=== PATIENT | male | born 1950 | race Caucasian/White ===

== ENCOUNTER 2017-08-25 06:49 | Day surgery (SDC) | payer MEDICARE, BC ==
[~2017-08-25 06:49] MED LIST: Cefuroxime 10 MG/ML SYRINGE EYELF SCH; Lidocaine 1% PF 2 ML SDV INJECT SCH; Pilocarpine 4% Ophth Soln 15 ML Bot EYELF SCH
[2017-08-25] MEDS: Polymyxin B/Trimethoprim 10 ML Bottle EYELF SCH ×3 (07:25→09:22)
[2017-08-25] MEDS: Brimonidine 0.2% Ophth Soln 5 ML Bottle EYELF SCH ×3 (07:30→09:22)
[2017-08-25] MEDS: Phenylephrine 2.5% Ophth Soln 2 ML Bot EYELF SCH ×5 (07:34→08:56)
--- NOTE | 2017-08-25 07:47 | PCM.PREANE ---
Preanesthetic Assessment - Procedure Proposed Procedure: Left Eye Cataract Extraction - Anesthesia/Transfusion/Family Hx Anesthesia History: Prior Anesthesia Without Reaction Family History of Anesthesia Reaction: Yes ("Daughter allegeric to Amide Anesthetic= Xylocaine ") Transfusion History: No Prior Transfusion(s) Intubation History: Unknown - Review of Systems General: Other (chronic cough with wood working ) Cardiovascular: Chest Pain (history of cardiac stents , no current chest pain ) Gastrointestinal: No Symptoms Neurological: No Symptoms Other: Reports: Diabetes (BS this AM 201 ) - Physical Assessment NPO Status Date: 08/24/17 NPO Status Time: 22:00 O2 Sat by Pulse Oximetry: 93 Respiratory Rate: 16 Vital Signs: Last Vital Signs Temp 36.7 C 08/25/17 07:05 Pulse 78 08/25/17 07:05 Resp 16 08/25/17 07:05 BP 138/74 08/25/17 07:05 Pulse Ox 93 L 08/25/17 07:05 Weight: 108.862 kg ASA Class: 2 Mental Status: Alert & Oriented x3 Airway Class: Mallampati = 3 Dentition: Reports: Normal Dentition Thyro-Mental Finger Breadths: 3 Mouth Opening Finger Breadths: 4 ROM/Head Extension: Full Lungs: Clear to Auscultation, Normal Respiratory Effort Cardiovascular: Regular Rate, Irregular Rhythm (known, told nothing to worry about, not on any medications for it ) - Lab Values: Laboratory Last Values POC Glucose 201 mg/dL (80-115) H 08/25/17 07:15 - Allergies Allergies/Adverse Reactions: Allergies Allergy/AdvReac Type Severity Reaction Status Date / Time No Known Allergies Allergy Verified 08/24/17 13:09 - Blood Blood Available: No - Anesthesia Plan Pre-Op Medication Ordered: None Beta Zohaib: Metoprolol Med Last Dose Date: 08/24/17 Med Last Dose Time: 18:00 - Acknowledgements Anesthesia Type Planned: MAC Pt an Appropriate Candidate for the Planned Anesthesia: Yes Alternatives and Risks of Anesthesia Discussed w Pt/Guardian: Yes Pt/Guardian Understands and Agrees with Anesthesia Plan: Yes PreAnesthesia Questionnaire Cardiovascular History: Reports: Arrhythmia, Hypertension - HOME MEDS Home Medications: Home Meds Finasteride [Finasteride] 5 mg PO DAILY 08/24/17 [History] LORazepam [LORazepam] 1 mg PO BEDTIME PRN 08/24/17 [History] Lisinopril [Lisinopril] 2.5 mg PO DAILY 08/24/17 [History] Metoprolol Succinate 25 mg PO DAILY 08/24/17 [History] SitaGLIPtin [Januvia] 50 mg PO DAILY 08/24/17 [History] Tamsulosin [Flomax] 0.8 mg PO DAILY 08/24/17 [History] metFORMIN [Glucophage] 1,000 mg PO BID 08/24/17 [History] - CURRENT (IN HOUSE) MEDS Current Meds: Current Medications Brimonidine Tartrate (Alphagan 0.2% Ophth Soln) 0 ml EYELF ASDIRECTED DINORAH Stop: 08/25/17 18:00 Last Admin: 08/25/17 07:30 Dose: 1 drop Cefuroxime Sodium (Zinacef) 0 mg EYELF ASDIRECTED DINORAH Stop: 08/25/17 18:00 Lidocaine HCl (Xylocaine-Mpf 1%) 10 ml INJECT ASDIRECTED DINORAH Stop: 08/25/17 18:00 Phenylephrine HCl (Cortez-Synephrine 2.5% Ophth Soln) 0 ml EYELF ASDIRECTED DINORAH Stop: 08/25/17 18:00 Last Admin: 08/25/17 07:34 Dose: 1 drop Pilocarpine HCl (Pilocar 4% Ophth Soln) 0 ml EYELF ASDIRECTED DINORAH Stop: 08/25/17 18:00 Polymyxin/Trimethoprim Sulfate (Polytrim Ophth Soln) 0 ml EYELF ASDIRECTED DINORAH Stop: 08/25/17 18:00 Last Admin: 08/25/17 07:25 Dose: 1 drop Tetracaine HCl (Tetracaine 0.5% Steri-Unit Anastasiya) 0 ml EYELF ASDIRECTED DINORAH Stop: 08/25/17 18:00 Tropicamide (Mydriacyl 1% Ophth Soln) 0 ml EYELF ASDIRECTED DINORAH Stop: 08/25/17 18:00 Last Admin: 08/25/17 07:38 Dose: 1 drop
[2017-08-25] MEDS: Tetracaine HCl/PF 0.5% 4 ML Bottle EYELF SCH ×2 (08:42→09:05)
--- NOTE | 2017-08-25 09:26 | PCM48HPAN ---
Post Anesthesia Note - EVALUATION WITHIN 48HRS OF ANESTHETIC Vital Signs in Normal Range: Yes Patient Participated in Evaluation: Yes Respiratory Function Stable: Yes Airway Patent: Yes Cardiovascular Function Stable: Yes Hydration Status Stable: Yes Pain Control Satisfactory: Yes Nausea and Vomiting Control Satisfactory: Yes Mental Status Recovered: Yes Pulse Rate: 78 SaO2: 93 Resp Rate: 16 Blood Pressure: 142/87
== END 2017-08-25 09:35 | disposition home or self-care (01) ==
LOC: JD.SDS 06:49
PROVIDERS: ATTEND Ophthalmology
DX: E11.36 Type 2 diabetes mellitus with diabetic cataract (principal); H25.813 Combined forms of age-related cataract, bilateral; H02.831 Dermatochalasis of right upper eyelid; H02.834 Dermatochalasis of left upper eyelid; I10 Essential (primary) hypertension; Z79.899 Other long term (current) drug therapy; Z79.84 Long term (current) use of oral hypoglycemic drugs; Z98.890 Other specified postprocedural states; Z87.891 Personal history of nicotine dependence
CPT/HCPCS: 66984; 82962; C1780; J0697; A9270-GY

== ENCOUNTER 2017-09-22 09:12 | Day surgery (SDC) | payer MEDICARE, BC ==
[~2017-09-22 09:12] MED LIST changes: -Cefuroxime 10 MG/ML SYRINGE EYELF SCH; +Cefuroxime 10 MG/ML SYRINGE EYERT SCH; -Pilocarpine 4% Ophth Soln 15 ML Bot EYELF SCH; +Pilocarpine 4% Ophth Soln 15 ML Bot EYERT SCH
[2017-09-22] MEDS: Polymyxin B/Trimethoprim 10 ML Bottle EYERT SCH ×3 (10:35→12:12)
--- NOTE | 2017-09-22 10:37 | PCM.PREANE ---
Preanesthetic Assessment - Anesthesia/Transfusion/Family Hx Anesthesia History: Prior Anesthesia Without Reaction Family History of Anesthesia Reaction: No Transfusion History: No Prior Transfusion(s) Intubation History: Unknown - Review of Systems General: No Symptoms Pulmonary: Other (denies) Cardiovascular: Other (stents four years ago, HTN) Gastrointestinal: Other (GERD) Other: Reports: Diabetes (diabetes, on oral agents, pt checks glucose in evening , last evening 160) - Physical Assessment NPO Status Date: 09/21/17 NPO Status Time: 23:00 Pulse: 64 O2 Sat by Pulse Oximetry: 94 Respiratory Rate: 16 Blood Pressure: 120/72 Temperature: 36 C Vital Signs: Last Vital Signs Temp 36.3 C 09/22/17 10:13 Pulse 64 09/22/17 10:13 Resp 16 09/22/17 10:13 BP 120/72 09/22/17 10:13 Pulse Ox 94 L 09/22/17 10:13 Height: 1.83 m Weight: 108.862 kg ASA Class: 3 Mental Status: Alert & Oriented x3 Airway Class: Mallampati = 3 Dentition: Reports: Normal Dentition Thyro-Mental Finger Breadths: 3 Mouth Opening Finger Breadths: 3 ROM/Head Extension: Full Lungs: Clear to Auscultation, Normal Respiratory Effort Cardiovascular: Regular Rate, Regular Rhythm - Allergies Allergies/Adverse Reactions: Allergies Allergy/AdvReac Type Severity Reaction Status Date / Time No Known Allergies Allergy Verified 09/20/17 16:32 - Blood Blood Available: No Product(s) Available: None - Anesthesia Plan Pre-Op Medication Ordered: None Beta Zohaib: Metoprolol Med Last Dose Date: 09/21/17 Med Last Dose Time: 20:00 - Acknowledgements Anesthesia Type Planned: MAC Pt an Appropriate Candidate for the Planned Anesthesia: Yes Alternatives and Risks of Anesthesia Discussed w Pt/Guardian: Yes Pt/Guardian Understands and Agrees with Anesthesia Plan: Yes PreAnesthesia Questionnaire Cardiovascular History: Reports: Arrhythmia, Hypertension - HOME MEDS Home Medications: Home Meds Finasteride [Finasteride] 5 mg PO DAILY 08/24/17 [History] LORazepam [LORazepam] 1 mg PO BEDTIME PRN 08/24/17 [History] Lisinopril [Lisinopril] 2.5 mg PO DAILY 08/24/17 [History] Metoprolol Succinate 25 mg PO DAILY 08/24/17 [History] SitaGLIPtin [Januvia] 50 mg PO DAILY 08/24/17 [History] Tamsulosin [Flomax] 0.8 mg PO DAILY 08/24/17 [History] metFORMIN [Glucophage] 1,000 mg PO BID 08/24/17 [History] - CURRENT (IN HOUSE) MEDS Current Meds: Current Medications Brimonidine Tartrate (Alphagan 0.2% Oph Soln) 0 ml EYERT ASDIRECTED DINORAH Stop: 09/22/17 18:00 Cefuroxime Sodium (Zinacef) 0 mg EYERT ASDIRECTED DINORAH Stop: 09/22/17 18:00 Lidocaine HCl (Xylocaine-Mpf 1%) 10 ml INJECT ASDIRECTED DINORAH Stop: 09/22/17 18:00 Phenylephrine HCl (Cortez-Synephrine 2.5% Oph Soln) 0 ml EYERT ASDIRECTED DINORAH Stop: 09/22/17 18:00 Pilocarpine HCl (Pilocar 4% Oph Soln) 0 ml EYERT ASDIRECTED DINORAH Stop: 09/22/17 18:00 Polymyxin/Trimethoprim Sulfate (Polytrim Ophth Soln) 0 ml EYERT ASDIRECTED DINORAH Stop: 09/22/17 18:00 Tetracaine HCl (Tetracaine 0.5% Steri-Unit Anastasiya) 0 ml EYERT ASDIRECTED DINORAH Stop: 09/22/17 18:00 Tropicamide (Mydriacyl 1% Oph Soln) 0 ml EYERT ASDIRECTED DINORAH Stop: 09/22/17 18:00
[2017-09-22] MEDS: Brimonidine 0.2% Ophth Soln 5 ML Bottle EYERT SCH ×3 (10:40→12:12)
[2017-09-22] MEDS: Phenylephrine 2.5% Ophth Soln 2 ML Bot EYERT SCH ×5 (10:46→11:52)
[2017-09-22] MEDS: Tetracaine HCl/PF 0.5% 4 ML Bottle EYERT SCH ×2 (11:41→12:05)
--- NOTE | 2017-09-22 12:16 | PCM48HPAN ---
Post Anesthesia Note - EVALUATION WITHIN 48HRS OF ANESTHETIC Vital Signs in Normal Range: Yes Patient Participated in Evaluation: Yes Respiratory Function Stable: Yes Airway Patent: Yes Cardiovascular Function Stable: Yes Hydration Status Stable: Yes Pain Control Satisfactory: Yes Nausea and Vomiting Control Satisfactory: Yes Mental Status Recovered: Yes Pulse Rate: 73 SaO2: 99 Resp Rate: 16 Temperature: 36 C Blood Pressure: 152/94
== END 2017-09-22 12:22 | disposition home or self-care (01) ==
LOC: JD.SDS 09:12
PROVIDERS: ATTEND Ophthalmology
DX: H26.9 Unspecified cataract (principal); I10 Essential (primary) hypertension; E11.9 Type 2 diabetes mellitus without complications; Z87.891 Personal history of nicotine dependence; Z79.84 Long term (current) use of oral hypoglycemic drugs; Z79.899 Other long term (current) drug therapy
CPT/HCPCS: 66984; J0697; A9270-GY